=== PATIENT | female | born 2005 | race Native Hawaiian/Other Pacific Islander ===

== ENCOUNTER 2023-06-05 14:49 | Outpatient (CLI) | payer BC | END 2023-06-05 18:59 | disposition home or self-care (01) | LOC: RAD 14:49 | PROVIDERS: ATTEND Orthopaedic Surgery | DX: M25.562 Pain in left knee (principal) ==

== ENCOUNTER 2023-06-22 12:18 | Outpatient (CLI) | payer BC | END 2023-06-22 20:44 | disposition home or self-care (01) | LOC: MRI 12:18 | PROVIDERS: ATTEND Orthopaedic Surgery | DX: M25.562 Pain in left knee (principal) ==